=== PATIENT | female | born 1985 | race Caucasian/White ===

== ENCOUNTER 2016-10-07 01:58 | Inpatient (IN) | payer BC ==
[2016-10-07] MEDS ORDERED: Dibucaine 1% 28.35 GM TUBE PR PRN (04:01)
[2016-10-07] MEDS ORDERED: Witch Hazel PAD* JAR TOPICAL PRN (04:01)
[2016-10-07] MEDS ORDERED: Acetaminophen TAB* 325 MG PO PRN (04:01)
[2016-10-07] MEDS ORDERED: Ibuprofen TAB* 600 MG PO PRN (04:01)
[2016-10-07] MEDS: Docusate CAP* 100 MG PO SCH ×3 (10:04→21:40)
[2016-10-08 05:22] LABS: Hematocrit 37 % (35-47); Hemoglobin 12.4 g/dl (12.0-16.0); Mean Corpuscular HGB Conc 34 g/dl (31-36); Mean Corpuscular Hemoglobin 31 pg (27-31); Mean Corpuscular Volume 93 fL (80-97); Mean Platelet Volume 8 um3 (7.4-10.4); Red Blood Count 3.98 10^6/ul (4.0-5.4); Red Cell Distribution Width 14 % (10.5-15); White Blood Count 9.8 10^3/ul (3.5-10.8)
[2016-10-08 08:10] VITALS: BP 124/74
[2016-10-08] MEDS ORDERED: Ferrous Gluconate TAB* 324 MG TAB PO SCH (09:00)
== END 2016-10-08 10:21 | disposition home or self-care (01) | DRG 560 ==
LOC: MCHOBOUT 01:58 → MCHOB 02:36
PROVIDERS: ADMIT Nurse Practitioner; ATTEND Nurse Practitioner
PROC: 10E0XZZ Delivery of Products of Conception, External Approach (ICD-10-PCS; principal; 2016-10-07)
PROC: 10907ZC Drainage of Amniotic Fluid, Therapeutic from Products of Conception, Via Natural or Artificial Opening (ICD-10-PCS; 2016-10-07)
PROC: 0KQM0ZZ Repair Perineum Muscle, Open Approach (ICD-10-PCS; 2016-10-07)
DX: O99.284 Endocrine, nutritional and metabolic diseases complicating childbirth (principal); E03.9 Hypothyroidism, unspecified; O70.1 Second degree perineal laceration during delivery; O77.0 Labor and delivery complicated by meconium in amniotic fluid; Z3A.39 39 weeks gestation of pregnancy; Z37.0 Single live birth
CPT/HCPCS: 36415; 85025; A9270-GY